=== PATIENT | male | born 1985 | race Caucasian/White ===

== ENCOUNTER 2018-06-28 19:26 | Emergency (ER) | payer BC ==
[2018-06-28] MEDS ORDERED: Meclizine HCl 25 MG TAB ONE (20:51)
--- NOTE | 2018-06-28 21:09 | CT ---
CT HEAD NONCONTRAST: 06/28/18 HISTORY: Headache. Facial pain and swelling. FINDINGS: No comparison. There is no evidence of acute intracranial hemorrhage or infarct. Ventricles appear normal in size, s hape and position. No mass effect or shift of midline structures. Globes are unremarkable. No abnorm alities of the right supratemporal level are apparent. IMPRESSION: No acute intracranial abnormalities are demonstrated. POS: [facility]
== END 2018-06-28 22:22 | disposition home or self-care (01) ==
LOC: ERS 19:26
DX: R42 Dizziness and giddiness (principal); Z79.82 Long term (current) use of aspirin
CPT/HCPCS: 70450; 93005